=== PATIENT | female | born 1975 | race Caucasian/White ===

== ENCOUNTER 2017-04-13 12:17 | Outpatient (CLI) | payer OTHER ==
[~2017-04-13] VITALS: Ht 167.6 cm; Wt 96.4 kg
[2017-04-13] MEDS ORDERED: PREN-3 PO (12:35)
== END 2017-04-13 13:20 | disposition home or self-care (01) ==
LOC: LDOP 12:17
PROVIDERS: ATTEND Obstetrics & Gynecology
DX: O09.523 Supervision of elderly multigravida, third trimester (principal); O26.893 Other specified pregnancy related conditions, third trimester; M54.9 Dorsalgia, unspecified; Z3A.38 38 weeks gestation of pregnancy
CPT/HCPCS: 59025